=== PATIENT | female | born 1940 | race African-American/Black ===

== ENCOUNTER → 2017-11-05 | Outpatient (CLI) | payer OTHER | LOC: MRI 09:01 | DX: N18.3 Chronic kidney disease, stage 3 (moderate) (principal); N28.1 Cyst of kidney, acquired; K76.89 Other specified diseases of liver; E27.8 Other specified disorders of adrenal gland; M41.86 Other forms of scoliosis, lumbar region; M47.896 Other spondylosis, lumbar region; Z98.82 Breast implant status ==

== ENCOUNTER → 2018-06-03 | Outpatient (CLI) | payer OTHER | LOC: CAT 08:25 | DX: Z13.6 Encounter for screening for cardiovascular disorders (principal); E78.00 Pure hypercholesterolemia, unspecified ==